=== PATIENT | male | born 1955 | race Caucasian/White ===

== ENCOUNTER 2019-04-11 11:21 | Emergency (ER) | payer MEDICAID, SELFPAY ==
[2019-04-11 11:27] VITALS: BP 154/84; PULSE 69; RESP 15; TEMP 36.8; O2SAT 98
[2019-04-11 11:43] LABS: Bilirubin Negative (Negative); Blood Negative (Negative); Clarity Clear (Clear); Glucose Negative (Negative); Ketones Negative (Negative); Leukocyte Esterase Negative (Negative); Nitrite Negative (Negative); Specific Gravity 1.015 (1.005-1.025); Urobilinogen 0.2 EU/dL (Up TO 0.2)
[2019-04-11] MEDS: Lactated Ringers 1,000 ML 1000 ML IV (12:20)
--- NOTE | 2019-04-11 12:24 | W.ED.GENAD ---
Discharge Plan Disposition Patient Disposition: HOME Condition: Stable Discharge Details Chief Complaint: Abd Prob Clinical Impression: Abdominal pain Primary Care Provider: Eran Diaz ED Provider: Monroe Roach Home Meds and New Rx's Prescriptions: No Action ibuprofen 200 MG tablet 400 mg PO .BID PRN RF: 0 Discharge Instructions Instructions: Abdominal Pain (ED) Additional Instructions: 1. Drink plenty of fluids. 2. Continue all medications as prescribed. 3. Acetaminophen 1000mg every 4 hours (up to 5 time a day) and/or ibuprofen 600mg every 6 hours as needed for fever or pain. Return to the Emergency Department (ED) if your condition worsens, does not improve as expected, or for ANY other concerns. Specifically, return if you have new or uncontrolled pain, worsening fever, difficulty breathing, vomiting, or are unable to drink fluids. Medical Decision Making 61-year-old gentleman presents with persistent atypical abdominal pain localized to his left abdomen. Symptoms subjectively associate with bloating and also with foul-smelling urine. Nontoxic in appearance with minimal left-sided abdominal tenderness. Bedside renal ultrasound negative for evidence of kidney stone/nephrolithiasis. Labs essentially normal. CT scan of the abdomen pelvis ordered with IV contrast and nondiagnostic. Discussed nondiagnostic work with patient. Discharged home with a plan for OTC analgesia, aggressive oral hydration, and outpatient follow-up as needed. Given usual customary return instructions prior to discharge. Imaging Data Radiologic Study: Attestation: I personally reviewed and interpreted this imaging study as follows: Imaging: Ultrasound (Bedside renal study) My impression: Limited renal bedside Ultrasound. Findings include no obvious hydronephrosis bilaterally, no UVJ stone,. Images obtained, reviewed, and interpreted independently by myself. Images saved on ultrasound system for review. Radiologic Study #2: Attestation: I personally reviewed and interpreted this imaging study as follows: Imaging: CT Scan (Abdomen and pelvis with IV contrast) My impression: No acute pathology. Interpreted independently and contemporaneously by myself. Radiologist's impression: Same Lab Data Lab results reviewed: Yes I reviewed the patient's lab results. Lab results narrative: Lab Results 04/11/19 04/11/19 04/11/19 Range/Units 11:25 12:10 12:10 WBC 8.27 (4.4-10.8) k/cumm RBC 4.93 (4.50-6.00) m/cumm Hgb 15.4 (13.5-17.5) g/dL Hct 45.4 (40.0-50.0) % MCV 92.1 (80-95) fL MCH 31.2 (27.0-33.0) pg MCHC 33.9 (32.0-36.0) g/dL RDW 13.3 (11.8-14.1) % Plt Count 348 (130-400) x1000/uL MPV 9.8 (8.0-11.0) fL Immature Gran % 0.1 Neutrophils % 57.5 Lymphocytes % 30.8 Monocytes % 8.5 Eosinophils % 2.4 Basophils % 0.7 Absolute Neutrophils 4.75 (1.2-6.7) k/cumm Absolute Lymphocytes 2.55 (1.2-3.4) k/cumm Absolute Monocytes 0.70 (0.11-0.7) k/cumm Absolute Eosinophils 0.20 (0.0-0.7) k/cumm Absolute Basophils 0.06 (0.0-0.2) k/cumm Sodium 141 (136-145) mmol/L Potassium 4.4 (3.5-5.1) mmol/L Chloride 103 (98-107) mmol/L Carbon Dioxide 29.7 (21.0-32.0) mmol/L Anion Gap 8.3 (3-11) mmol/L BUN 14 (7-18) mg/dL Creatinine 1.03 (0.70-1.30) mg/dL Estimated GFR/1.73 m2 >= 60.00 (mL/min/1.73m2) Glucose 104 (74-106) mg/dL Calcium 9.3 (8.5-10.1) mg/dL Total Bilirubin 0.6 (0.2-1.0) mg/dL AST 17 (15-37) U/L ALT 21 (16-63) U/L Alkaline Phosphatase 63 (46-116) U/L Total Protein 7.7 (6.4-8.2) g/dL Albumin 4.1 (3.4-5.0) g/dL Urine Color Yellow (Yellow) Urine Clarity Clear (Clear) Urine pH 7.0 (5-8) Ur Specific [place] 1.015 (1.005-1.025) Urine Protein Negative (Negative) mg/dL Urine Ketones Negative (Negative) mg/dL Urine Blood Negative (Negative) Urine Nitrite Negative (Negative) Urine Bilirubin Negative (Negative) Urine Urobilinogen 0.2 (Up TO 0.2) EU/dL Ur Leukocyte Esterase Negative (Negative) Urine Glucose Negative (Negative) mg/dL HPI 63-year-old gentleman with a past medical history which includes regular screening by colonoscopy for family history of colon cancer. According to Mr. Gonsalez, his colonoscopies have been negative for any significant bowel pathology. He presents with 1 week of worsening abdominal pain localized to his left abdomen. Associated symptoms include abdominal bloating and some mild foul-smelling urine. Over the past 2 days he has had subjective fevers/chills. He denies dyspnea, chest pain, palpitations, urinary symptoms, or change in bowel habits. He has had no melena or hematochezia. He denies any history of previous similar abdominal symptoms. He notes feeling subjectively bloated and describes the sensation of a blockage in his bowels with symptomatic change associated with belching and flatulence. General Date/Time Provider Initiated Documentation: 04/11/19 11:37. Related Data Home Medications Medication Instructions Recorded Confirmed ibuprofen 400 mg PO .BID PRN 08/19/13 04/11/19 Allergies Allergy/AdvReac Type Severity Reaction Status Date / Time No Known Allergies Allergy Unverified 04/11/19 11:32 General Stated Complaint: Abd Prob SABRINA: 3 Review of Systems All systems reviewed & are unremarkable except as noted in HPI and below PFSH Social History Smoking/Tobacco Use Status: Current every day Tobacco Type: cigarettes Drug use: Never Do you feel safe at home: Yes Do you feel safe in your relationship?: Yes Exam Narrative Exam Narrative: Nursing note and vital signs have been reviewed and noted. GENERAL: alert, active, no acute distress, well -hydrated, well-nourished HEENT: atraumatic/normocephalic, PERRLA, EOMI, conjunctiva clear, external ears/canals normal, nasal mucosa normal NECK: supple, full range of motion, no mass, normal lymphadenopathy, no thyromegaly CARDIOVASCULAR: RRR, no murmurs, nl pulses, no edema PULMONARY: nl effort, no audible wheezing or stridor, nl breath sounds with no focal deficit. no chest wall tenderness ABDOMEN: soft, non-distended, no mass, no organomegaly; mild left lower quadrant tenderness with no rebound, guarding, or peritonitis. EXTREMITY: normal muscle tone, all joints with FROM, no deformity or tenderness SKIN: no exanthem appreciated NEURO: gross motor exam normal, normal stance and gait PSYCH: alert and oriented, Course Vital Signs Vital signs: Vital Signs Temperature 98.2 F 04/11/19 11:27 Pulse 69 04/11/19 11:27 Respiratory Rate 15 04/11/19 11:27 Blood Pressure 154/84 H 04/11/19 11:27 Pulse Oximetry 98 04/11/19 11:27 Temperature 98.2 F 04/11/19 11:27 Temperature Source Temporal Artery Scan 04/11/19 11:27 Pulse 69 04/11/19 11:27 Respiratory Rate 15 04/11/19 11:27 Respiratory Effort Non-Labored 04/11/19 11:30 Blood Pressure 154/84 H 04/11/19 11:27 Blood Pressure Position Sitting 04/11/19 11:27 Pulse Oximetry 98 04/11/19 11:27 Oxygen Delivery Method Room Air 04/11/19 11:27 Oxygen Flow Rate 0 04/11/19 11:27 Pain Level 3 04/11/19 11:27 Lab/Test Results Lab/Test Results: Laboratory Tests Range/Units 04/11/19 11:25 Urine Color (Yellow) Yellow Urine Clarity (Clear) Clear Urine pH (5-8) 7.0 Ur Specific [place] (1.005-1.025) 1.015 Urine Protein (Negative) mg/dL Negative Urine Ketones (Negative) mg/dL Negative Urine Blood (Negative) Negative Urine Nitrite (Negative) Negative Urine Bilirubin (Negative) Negative Urine Urobilinogen (Up TO 0.2) EU/dL 0.2 Ur Leukocyte Esterase (Negative) Negative Urine Glucose (Negative) mg/dL Negative
[2019-04-11 12:27] LABS: Abs Immature Grans 0.01 k/cumm (0.0-0.09); Absolute Basophil Count 0.06 k/cumm (0.0-0.2); Absolute Lymphocyte Count 2.55 k/cumm (1.2-3.4); Absolute Neutrophil Count 4.75 k/cumm (1.2-6.7); Basophils % 0.7; Eosinophils % 2.4; HCT 45.4 % (40.0-50.0); HGB 15.4 g/dL (13.5-17.5); Immature Grans % 0.1; Lymphocytes % 30.8; Mean Corp. HGB Concentration 33.9 g/dL (32.0-36.0); Mean Corpuscular Hemoglobin 31.2 pg (27.0-33.0); Mean Corpuscular Volume 92.1 fL (80-95); Mean Platelet Volume 9.8 fL (8.0-11.0); Monocytes % 8.5; Neutrophils % 57.5; Platelet Count 348 x1000/uL (130-400); RBC 4.93 m/cumm (4.50-6.00); RBC Distribution Width 13.3 % (11.8-14.1); White Blood Cell Count 8.27 k/cumm (4.4-10.8)
[2019-04-11 12:36] LABS: ALT 21 U/L (16-63); AST 17 U/L (15-37); Albumin 4.1 g/dL (3.4-5.0); Alkaline Phosphatase 63 U/L (46-116); Anion Gap 8.3 mmol/L (3-11); BUN 14 mg/dL (7-18); Bilirubin, Total 0.6 mg/dL (0.2-1.0); CO2 29.7 mmol/L (21.0-32.0); CREATININE 1.03 mg/dL (0.70-1.30); Calcium 9.3 mg/dL (8.5-10.1); Chloride 103 mmol/L (98-107); Glucose 104 mg/dL (74-106); Potassium 4.4 mmol/L (3.5-5.1); Sodium 141 mmol/L (136-145); Total Protein 7.7 g/dL (6.4-8.2)
--- NOTE | 2019-04-11 12:37 | DI.CT_ITS ---
EXAM: CT ABDOMEN AND PELVIS W CLINICAL HISTORY: LLQ pain x 1 week, bloating TECHNIQUE: After IV and without oral contrast. COMPARISON: No exams were available for comparison FINDINGS: The lung bases are clear. There is mild left ventricular enlargement. The liver, gallbladder, splee n, pancreas, adrenals and kidneys are unremarkable. The appendix appears normal. There is a normal quantity of stool. No bowel dilatation or inflammatory changes are seen. The aorta shows mild calci fication but is normal in diameter. The bladder is nearly empty. The prostate is unremarkable. The re are mild degenerative disc changes at L5-S1. IMPRESSION: No acute abnormality.
[2019-04-11] MEDS: Omnipaque 350 MG/ML 100 ML BTL IV (12:46)
[2019-04-11 13:42] VITALS: BP 127/83; PULSE 60; RESP 15; TEMP 36.7; O2SAT 98
[2019-04-11 13:49] VITALS: BP 127/83; PULSE 60; RESP 15; TEMP 36.7; O2SAT 98
== END 2019-04-11 13:53 | disposition home or self-care (01) ==
PROVIDERS: Emergency Provider Emergency Medicine; PCP Internal Medicine
DX: R10.32 Left lower quadrant pain (principal); R82.998 Other abnormal findings in urine
CPT/HCPCS: 80053; 96360; 99284; 74177; 81003; 85025; J3490

== ENCOUNTER 2019-04-19 14:52 | Outpatient (REF) | payer MEDICAID, SELFPAY ==
[2019-04-19 22:17] LABS: Calculated LDL 163 mg/dL; Cholesterol 289 mg/dL (<200); HDL Cholesterol 63 mg/dL (40-60); Triglyceride 318 mg/dL (<150)
== END 2019-04-19 15:12 ==
LOC: NCHCN 14:52
PROVIDERS: PCP Internal Medicine; Visit Provider Specialist/Technologist Athletic Trainer
DX: Z00.00 Encounter for general adult medical examination without abnormal findings (principal); Z13.220 Encounter for screening for lipoid disorders
CPT/HCPCS: 80061

== ENCOUNTER 2020-08-16 10:50 | Emergency (ER) | payer MEDICAID, SELFPAY ==
[2020-08-16] VITALS (35 sets, daily range): BP systolic 137–173; BP diastolic 81–108; PULSE 42–69; RESP 8–28; TEMP 36.6; O2SAT 96–99
--- NOTE | 2020-08-16 10:45 | RT.EKG_ITS ---
APPROVED REPORT Exam: Resting ECG Patient Location: E HR:57 bpm ECG Measurements Heart Rate 57 AXIS TN 160 P 55 QRSd 117 QRS -47 QT 432 T 61 QTc 422 Conclusion Sinus bradycardia...rate< 60 LAD,no stemi
--- NOTE | 2020-08-16 11:07 | W.ED.GENAD ---
Discharge Plan Disposition Patient Disposition: HOME Condition: Improving Discharge Details Clinical Impression: Chest pain Primary Care Provider: Toan Ramos ED Provider: Nic Coffey Home Meds and New Rx's Prescriptions: No Action ibuprofen 200 MG tablet 400 mg PO .BID PRN RF: 0 Discharge Instructions Instructions: Chest Pain (ED) Additional Instructions: Your work-up today included blood work, chest x-ray, CAT scan of the chest. May resume normal routine and activities You will receive a call from the scheduling office to arrange a time for your outpatient stress test. Today, you underwent pretesting Covid swab. Return for recurrent chest pain or any other acute concerns Medical Decision Making 65-year-old male smoker with a positive family history of coronary artery disease presents with substernal chest pressure he states awoke approximately 4 AM. Is been constant, graded 4-5 out of 10, and improved with laying flat on the gurney after triage. He is slightly hypertensive otherwise unremarkable vital signs. His exam is reassuring. Differential diagnosis includes gastric bubble, nutcracker esophagus, ACS, PE. Patient had IV access established, screening EKG obtained, patient referred for chest straightening and laboratory testing. Laboratories reveal a D-dimer that is 557, negative when adjusted for age. Unremarkable chemistries, normal troponin, normal lipase. Chest x-ray with a vertically oriented increased density in the left lower lobe. This is in the approximate location of the patient's pain. Therefore, we will pursue advanced imaging with CT scan. CT reveals scarring of the left lower lobe, no other acute findings. Patient observed on manager monitoring and repeat troponin obtained. If negative, anticipate discharge to home with follow-up outpatient stress test. Patient understands plan of outpatient care and indications to seek reevaluation in the ER. HPI General Mode of arrival: ambulatory. Date/Time Provider Initiated Documentation: 08/16/20 10:51. Limitations to Documentation: no limitations. Information obtained by: patient. History of Present Illness 65 year old M presents to the emergency department with the chief complaint of Central chest pressure beginning this morning approximately 4 AM, described as moderate, Quality is described as dull, and is localized to the chest. Patient reports no radiation. Patient started experiencing this hour(s) and it has been constant. No relieving factors improve symptom(s), and other things that improve symptom(s), (Seem to improve lying flat on) No exacerbating factors reported . Patient notes denies cough, fever/chills, shortness of breath and syncope. Patient did receive the following treatments prior to arrival, none Related Data Home Medications Medication Instructions Recorded Confirmed ibuprofen 400 mg PO .BID PRN 08/19/13 08/16/20 Allergies Allergy/AdvReac Type Severity Reaction Status Date / Time No Known Allergies Allergy Unverified 08/16/20 10:57 General Stated Complaint: Chest Pain SABRINA: 2 Review of Systems Narrative: No known sick contacts, no recent illness. Has postnasal drip and seasonal allergies. 6 systems reviewed and otherwise negative [facility]LY [facility] Social History Smoking/Tobacco Use Status: Current every day Tobacco Type: cigarettes Smoking risk assessment performed?: Yes Drug use: Never Do you feel safe at home: Yes Do you feel safe in your relationship?: Yes Exam Narrative Exam Narrative: GEN: awake, alert, oriented 3. Pleasant, well groomed, interactive. HEAD: Normocephalic, atraumatic ENT: Mucous membranes moist, oropharynx unremarkable, External ear exam unremarkable EYES: PERRL, EOMI NECK: Full ROM, no KEELEY, no menigismus CHEST/RESP: Nontender, clear to auscultation bilateral, no wheeze/rhonchi/rales CARDIOVASCULAR: RRR, no murmur, rub abundio. 2+ Rad pulse bilateral ABDOMEN: Soft, minimal epigastric tenderness, no mass. +Bowel sounds EXT: Full ROM, no edema, no rash Neuro: Grossly normal neurologic exam, conversant, interactive. Psych: Speech fluent, thoughts congruent, affect normal Course Vital Signs Vital signs: Vital Signs Temperature 36.6 C 08/16/20 10:52 Pulse 60 08/16/20 10:52 Respiratory Rate 13 08/16/20 10:52 Blood Pressure 173/92 H 08/16/20 10:52 Pulse Oximetry 98 08/16/20 10:52 Temperature 36.6 C 08/16/20 10:52 Temperature Source Skin 08/16/20 10:52 Pulse 60 08/16/20 10:52 Respiratory Rate 18 08/16/20 11:00 Respiratory Effort Non-Labored 08/16/20 11:00 Respiratory Depth Normal 08/16/20 11:00 Respiratory Pattern Normal 08/16/20 11:00 Blood Pressure 173/92 H 08/16/20 10:52 Blood Pressure Position Sitting 08/16/20 10:52 Pulse Oximetry 98 08/16/20 10:52 Oxygen Delivery Method Room Air 08/16/20 10:52 Oxygen Flow Rate 0 08/16/20 10:52 Pain Level 5 08/16/20 11:00
[2020-08-16 11:44] LABS: Abs Immature Grans 0.03 10^3/uL (0.0-0.06); Absolute Basophil Count 0.07 10^3/uL (0.0-0.2); Absolute Eosinophil Count 0.17 10^3/uL (0.0-0.7); Absolute Lymphocyte Count 2.05 10^3/uL (1.2-3.4); Absolute Monocyte Count 0.56 10^3/uL (0.1-0.8); Absolute Neutrophil Count 4.57 10^3/uL (1.2-6.7); Basophils % 0.9; Eosinophils % 2.3; HCT 44.5 % (40.0-50.0); HGB 15.2 g/dL (13.5-17.5); Immature Grans % 0.4; Lymphocytes % 27.5; MCH 31.8 pg (27.0-33.0); MCHC 34.2 % (32.0-36.0); MCV 93.1 fL (80-95); MPV 9.4 fL (8.0-11.0); Monocytes % 7.5; Neutrophils % 61.4; Nucleated RBC 0 %; Platelet Count 313 10^3/uL (130-400); RBC 4.78 10^6/uL (4.36-5.78); RDW 13.1 % (11.8-14.1); WBC 7.45 10^3/uL (4.4-10.8)
--- NOTE | 2020-08-16 11:55 | DI.RAD_ITS ---
EXAM: XR CHEST 2V PA LATERAL CLINICAL HISTORY: chest pressure. TECHNIQUE: 2D digital imaging was performed. COMPARISON: CR CHEST 2 VIEWS PA,LAT from 11/12/2014 FINDINGS: Heart size is normal. The mediastinum is not widened. Right lung is clear. There is some scarring or bronchiectasis in left lower lobe posterior basal seg ment. This finding was not evident on the 2015 study. There are no pleural effusions. IMPRESSION: Increased density vertically orientated in left lower lobe posterior basal segment behind the heart s hadow. Either bronchiectasis or possibly related to aspirated material. DATA REPOSITORY: RADIATION DOSE DELIVERED:
[2020-08-16 12:00] LABS: ALT 25 U/L (16-63); AST 19 U/L (15-37); Alkaline Phosphatase 60 U/L (46-116); Anion Gap 10.5 mmol/L (3-11); BUN 16 mg/dL (7-18); Bilirubin, Total 0.5 mg/dL (0.2-1.0); CO2 26.5 mmol/L (21.0-32.0); Calcium 9.4 mg/dL (8.5-10.1); Chloride 105 mmol/L (98-107); Glucose 104 mg/dL (74-106); Lipase 169 U/L (73-393); Sodium 142 mmol/L (136-145); Total Protein 7.5 g/dL (6.4-8.2)
[2020-08-16 12:01] LABS: Troponin I < 0.05 ng/mL (<0.06)
[2020-08-16 12:13] LABS: D-Dimer 557 ng/mlFEU (<500)
[2020-08-16] MEDS: Normal Saline 250 ML IV (13:00)
[2020-08-16] MEDS: Normal Saline Flush 10 ML SYR IVP (13:34)
[2020-08-16] MEDS: Normal Saline - Diluent 50 ML VIAL IV (13:34)
--- NOTE | 2020-08-16 13:34 | DI.CT_ITS ---
EXAM: CT CHEST PE CTA CLINICAL HISTORY: SSCpressure, L basilar density. TECHNIQUE: Imaging Protocol: CT angiography of the chest was performed using pulmonary embolus vlad col. Multi planar reconstructions were performed. CONTRAST MATERIAL: Intravenous: Omnipaque 350 Contrast volume: 100 cc COMPARISON: CT CT ABDOMEN PELVIS W from 04/11/2019 FINDINGS: CHEST: PULMONARY ARTERIES: There are no intraluminal filling defects to suggest acute pulmonary emboli. LUNGS: There is no evidence of bronchiectasis in the left lower lobe to correspond to finding describ ed on today's chest radiograph behind the left heart shadow. Instead there is some scarring in this region noted. No ominous nodules. No pleural effusions. No significant focal findings in the trach ea and mainstem bronchi. MEDIASTINUM: There is no hilar nor mediastinal adenopathy. Visualized thyroid unremarkable. CARDIAC: Heart size is upper normal. There is no pericardial effusion.Caliber of the thoracic aorta is within normal limits. There is no significant shift of the interventricular septum. PARTIALLY VISUALIZED UPPERMOST ABDOMEN: No obvious findings OSSEOUS: No significant osseous lesions.. IMPRESSION: 1. No evidence of acute pulmonary emboli. No evidence of pulmonary infarction.No pleural effusions. 2. There is some scarring in the left lung base which corresponds to the finding seen on chest radiog raph. There is no bronchiectasis and no confluent infiltrate at this level. 3. No intrathoracic adenopathy. RADIATION DOSE DELIVERED: 373.06mGy.cm Total DLP DATA REPOSITORY: All CT scans at this facility are submitted to the National Radiology Data Registry (NRDR) Dose Index Registry (DIR) with the [employer] (ACR). RADIATION OPTIMIZATION: All CT scans at this facility use at least one of these dose optimization te chniques: automated exposure control; mA and/or kV adjustment per patient size (includes targeted exa ms where dose is matched to clinical indication); or iterative reconstruction.
--- NOTE | 2020-08-16 14:30 | RT.EKG_ITS ---
APPROVED REPORT Exam: Resting ECG Patient Location: E HR:42 bpm ECG Measurements Heart Rate 42 AXIS CO 205 P 56 QRSd 115 QRS -37 QT 469 T 62 QTc 393 Conclusion Sinus bradycardia...rate< 60 Nonspecific IVCD with LAD.
--- NOTE | 2020-08-16 14:45 | NUR.NOTE ---
Nursing Note: Stree test request faxed [facility]
[2020-08-16 14:52] LABS: Source Nasal/Nares
[2020-08-16 15:13] LABS: Troponin I < 0.05 ng/mL (<0.06)
[2020-08-16 17:12] LABS: COVID-19 PCR Negative (Negative)
--- NOTE | 2020-08-16 17:38 | NUR.NOTE ---
08/16/20 @ 9523 left message to return call for test results.
--- NOTE | 2020-08-16 17:48 | NUR.NOTE ---
patient returned phone call and after verifying patient's identity, relayed negative covid test results to them.
--- NOTE | 2020-08-17 08:55 | NUR.NOTE ---
Nursing Note: Attempted to contact pt via phone to notify of negative covid results, received answering machine. Results mailed to patient address on file.
== END 2020-08-16 16:10 | disposition home or self-care (01) ==
PROVIDERS: Emergency Provider Emergency Medicine; PCP Internal Medicine
DX: R07.89 Other chest pain (principal); Z20.822 Contact with and (suspected) exposure to COVID-19; J98.4 Other disorders of lung
CPT/HCPCS: 36415; 71275; 80053; 83690; 87635; 93005; 96360; 99285; 71046; 83735; 84484; 85025; 85379; 93010; 99284

== ENCOUNTER 2022-01-29 09:23 | Outpatient (REF) | payer MEDICARE, MEDICAID, SELFPAY ==
[2022-01-29 16:54] LABS: HCT 46.1 % (40.0-50.0); HGB 15.3 g/dL (13.5-17.5); MCH 31.4 pg (27.0-33.0); MCHC 33.2 % (32.0-36.0); MCV 95 fL (80-95); MPV 11.6 fL (8.0-11.0); Platelet Count 304 10^3/uL (130-400); RBC 4.87 10^6/uL (4.36-5.78); RDW 13.1 % (11.8-14.1); RDW-SD 45.4 fL
[2022-01-29 17:19] LABS: ALT 23 U/L (16-63); AST 20 U/L (15-37); Albumin 4.1 g/dL (3.4-5.0); Alkaline Phosphatase 68 U/L (46-116); Anion Gap 7.5 mmol/L (3-11); BUN 21 mg/dL (7-18); Bilirubin, Total 0.7 mg/dL (0.2-1.0); CO2 29.5 mmol/L (21.0-32.0); Calcium 9.5 mg/dL (8.5-10.1); Calculated LDL 201 mg/dL (<100); Chloride 104 mmol/L (98-107); Cholesterol 290 mg/dL (<200); Estimated GFR 83.52 (mL/min/1.73m2); Glucose 99 mg/dL (74-106); HDL Cholesterol 67 mg/dL (40-60); Potassium 4.6 mmol/L (3.5-5.1); Sodium 141 mmol/L (136-145); Total Protein 7.5 g/dL (6.4-8.2); Triglyceride 112 mg/dL (<150)
[2022-01-29 23:20] LABS: PSA, Screening 0.8 ng/mL (<=4.5)
[2022-01-30 08:59] LABS: Lyme Ab w Rflx to Lyme Confirm Negative (Negative)
[2022-02-01 22:26] LABS: Anaplasma phagocytophilum Negative (Negative); B. miyamotoi PCR Negative (Negative); Babesia divergens/MO-1 Negative (Negative); Babesia duncani Negative (Negative); Babesia microti Negative (Negative); Ehrlichia chaffeensis Negative (Negative); Ehrlichia ewingii/canis Negative (Negative); Ehrlichia muris eauclairensis Negative (Negative)
== END 2022-01-29 09:24 | disposition home or self-care (01) ==
LOC: NCHCN 09:23
PROVIDERS: PCP Internal Medicine; Visit Provider Nurse Practitioner Family
DX: M25.59 Pain in other specified joint (principal); R79.89 Other specified abnormal findings of blood chemistry; Z12.5 Encounter for screening for malignant neoplasm of prostate; Z00.00 Encounter for general adult medical examination without abnormal findings
CPT/HCPCS: 80053; 80061; 84153; 85027; 87798; 86618

== ENCOUNTER 2022-07-17 10:38 | Emergency (ER) | payer MEDICARE, MEDICAID, SELFPAY ==
[2022-07-17 10:51] VITALS: BP 173/97; PULSE 62; RESP 15; TEMP 36.7; O2SAT 96
--- NOTE | 2022-07-17 11:13 | ED.GENADUL_ITS ---
Discharge Plan Disposition Patient Disposition: Home Discharge Details Clinical Impression: Abdominal pain Primary Care Provider: Sonal Espinoza ED Provider: Nic Coffey Home Meds and New Rx's Prescriptions: New amoxicillin-pot clavulanate 875-125 mg tablet 1 tab PO BID 10 Days Qty: 20 0RF Continued ibuprofen 200 MG tablet 400 mg PO .BID PRN Discharge Instructions Instructions: Abdominal Pain (ED) Additional Instructions: As we discussed, we will use a twup-clx-hye approach to the start of antibiotics. If you have recurrent discomfort this evening please begin 10-day course of Augmentin as prescribed. If you take this medication, please take a daily ilxf-nhr-jhhblyu probiotic for good gut health. May use Tylenol as needed for discomfort. Return to the emergency department for any acute concerns including the development of fever, vomiting, worsening abdominal pain. Medical Decision Making This is a pleasant and healthy 67-year-old male presents with days of left lower quadrant abdominal pain. He has not had a fever or vomiting. Notes some mild decrease in appetite. No change to stool and no change to urine. Patient is afebrile and well-appearing he does demonstrate left lower quadrant abdominal tenderness on exam. Differential diagnosis would include diverticulitis, atypical presentation of appendicitis, colitis. Patient IV access established, given fluids and acetaminophen, referred for imaging studies. The patient's laboratories are reassuring. His CT images showed no evidence of acute process. There is evidence of diverticulosis. Discussed with him that my clinical suspicion for mild diverticulitis is present but low. We discussed that given his pain is improving, we will use a itax-zoy-uba approach to starting antibiotics if his pain recurs this evening he will start a course of Augmentin. If his pain continues to be absent he will resume normal daily routine and activities. He understands indications to seek reevaluation in the ER. HPI General Mode of arrival: ambulatory . Date/Time Provider Initiated Documentation: 07/17/22 10:39 . Limitations to Documentation: no limitations . Information obtained by: patient . History of Present Illness 67 year old M presents to the emergency department with the chief complaint of Lower abdominal pain, described as moderate, Quality is described as dull and constant, and is localized to the abdomen and left. Patient reports no radiation. Ana ent started experiencing this day(s) and it has been constant. No relieving factors improve symptom(s), No exacerbating factors reported . Patient did receive the following treatments prior to arrival, none Related Data Home Medications Medication Instructions Recorded Confirmed ibuprofen 200 mg tablet 400 mg PO .BID PRN 08/19/13 07/17/22 amoxicillin 875 mg-potassium 1 tab PO BID 10 days #20 tabs 07/17/22 clavulanate 125 mg tablet Previous Rx's Medication Instructions Recorded amoxicillin 875 mg-potassium 1 tab PO BID 10 days #20 tabs 07/17/22 clavulanate 125 mg tablet Allergies Allergy/AdvReac Type Severity Reaction Status Date / Time No Known Allergies Allergy Unverified 07/17/22 11:15 General Stated Complaint: Abd Prob SABRINA: 3 Review of Systems Narrative: See HPI. 7 systems reviewed PFSH All Active Problems (Updated 07/17/22 @ 13:52 by Nic Coffey MD) Chest pain (Acute) Abdominal pain (Acute) Social History Smoking/Tobacco Use Status: Current every day Tobacco Type: cigarettes Smoking risk assessment performed?: Yes Alcohol Intake: current Alcohol Intake frequency: a few times a week Alcohol type: wine Drug use: Never Substance use type: does not use Do you feel safe at home: Yes Do you feel safe in your relationship?: Yes Exam Narrative Exam Narrative: GEN: awake, alert, oriented 3. Pleasant, well groomed, interactive. HEAD: Normocephalic, atraumatic ENT: Mucous membranes moist, oropharynx unremarkable, External ear exam unremarkable EYES: PERRL, EOMI NECK: Full ROM, no KEELEY, no menigismus CHEST/RESP: Nontender, clear to auscultation bilateral, no wheeze/rhonchi/rales CARDIOVASCULAR: RRR, no murmur, rub abundio. 2+ Rad pulse bilateral ABDOMEN: Soft, tender left lower quadrant to palpation, no mass. +Bowel sounds EXT: Full ROM, no edema, no rash Neuro: Grossly normal neurologic exam, conversant, interactive. Psych: Speech fluent, thoughts congruent, affect normal Course Vital Signs Vital signs: Vital Signs Temperature 36.7 C 07/17/22 10:51 Pulse 62 07/17/22 10:51 Respiratory Rate 15 07/17/22 10:51 Blood Pressure 173/97 H 07/17/22 10:51 Pulse Oximetry 96 07/17/22 10:51 Temperature 36.7 C 07/17/22 10:51 Temperature Source Oral 07/17/22 10:51 Pulse 62 07/17/22 10:51 Respiratory Rate 15 07/17/22 10:51 Blood Pressure 173/97 H 07/17/22 10:51 Blood Pressure Position Sitting 07/17/22 10:51 Pulse Oximetry 96 07/17/22 10:51 Oxygen Delivery Method Room Air 07/17/22 10:51 Oxygen Flow Rate 0 07/17/22 10:51 Pain Level 7 07/17/22 10:51
--- NOTE | 2022-07-17 11:15 | DI.CT_ITS ---
Exam(s) CT ABDOMEN PELVIS W EXAM: CT ABDOMEN PELVIS W CLINICAL HISTORY: LLQ abd pain. TECHNIQUE: Imaging Protocol: Axial computed tomography images with coronal and sagittal reformatted images were created and reviewed CONTRAST MATERIAL: Intravenous: Omnipaque 350 Contrast volume:100 ml Oral: / no COMPARISON: CT CT ABDOMEN PELVIS W from 04/11/[address] CHEST PE CTA from 08/16/2020 FINDINGS: ABDOMEN: Lung Bases: Normal where visualized. Liver: Normal density. No measurable mass. Gallbladder and biliary tract: No radiodense calculus or dilation. Pancreas: Normal density, no abnormal calcifications or inflammatory process. Spleen: Normal. Kidneys: Normal size, contour and axis. No radiodense stones or obstructive uropathy. No suspicious m asses seen. Adrenal glands: No masses seen. Abdominal Aorta: Abdominal portion non-dilated. Moderate atherosclerotic changes. Soft tissues: Unremarkable. PELVIS: Bladder: Nearly empty. No calculi.No focal mass. Bowel: Mild sigmoid diverticulosis. No evidence of diverticulitis. Normal quantity of stool. No ob struction. No bowel wall thickening. Appendix normal. Peritoneal cavity: No ascites, collection or mesenteric inflammatory response. Bones: Degenerative changes L5-S1. Reproductive organs: Mild prostate enlargement. Lymph nodes: Unremarkable. Impression: Unremarkable CT scan of the abdomen and pelvis. RADIATION DOSE DELIVERED: 744.66mGy.cm Total DLP DATA REPOSITORY: All CT scans at this facility are submitted to the National Radiology Data Registry (NRDR) Dose Index Registry (DIR) with the [employer] (ACR). RADIATION OPTIMIZATION: All CT scans at this facility use at least one of these dose optimization te chniques: automated exposure control; mA and/or kV adjustment per patient size (includes targeted exa ms where dose is matched to clinical indication); or iterative reconstruction.
[2022-07-17] MEDS: ACETAMINOPHEN 1,000 MG/100 ML BTL 400 MG IVPB (11:38)
[2022-07-17 11:39] LABS: Abs Immature Grans 0.01 10^3/uL (0.0-0.06); Absolute Basophil Count 0.09 10^3/uL (0.0-0.2); Absolute Lymphocyte Count 2.38 10^3/uL (1.2-3.4); Absolute Monocyte Count 0.59 10^3/uL (0.1-0.8); Absolute Neutrophil Count 4.78 10^3/uL (1.2-6.7); Basophils % 1.1; Eosinophils % 2.5; HCT 48.3 % (40.0-50.0); HGB 16.2 g/dL (13.5-17.5); Immature Grans % 0.1; Lymphocytes % 29.6; MCH 31.2 pg (27.0-33.0); MCHC 33.5 % (32.0-36.0); MCV 93 fL (80-95); Monocytes % 7.3; Neutrophils % 59.4; Platelet Count 289 10^3/uL (130-400); RDW 13.1 % (11.8-14.1); RDW-SD 44.5 fL; WBC 8.05 10^3/uL (4.4-10.8)
[2022-07-17 11:45] LABS: Bilirubin Negative (Negative); Blood Negative (Negative); Clarity Clear (Clear); Glucose Negative (Negative); Ketones Negative (Negative); Leukocyte Esterase Negative (Negative); Nitrite Negative (Negative); Specific Gravity 1.015 (1.005-1.025); Urobilinogen 0.2 mg/dL (Up to 0.2)
[2022-07-17 11:57] LABS: ALT 18 U/L (16-63); AST 18 U/L (15-37); Albumin 4.1 g/dL (3.4-5.0); Alkaline Phosphatase 63 U/L (46-116); Anion Gap 5.5 mmol/L (3-11); BUN 13 mg/dL (7-18); Bilirubin, Total 0.6 mg/dL (0.2-1.0); CO2 28.5 mmol/L (21.0-32.0); CREATININE 1.1 mg/dL (0.70-1.30); Calcium 9.4 mg/dL (8.5-10.1); Chloride 105 mmol/L (98-107); Estimated GFR 74.04 (mL/min/1.73m2); Glucose 107 mg/dL (74-106); Magnesium 2.1 mg/dL (1.8-2.4); Potassium 3.9 mmol/L (3.5-5.1); Sodium 139 mmol/L (136-145); Total Protein 7.6 g/dL (6.4-8.2)
[2022-07-17] MEDS: Omnipaque 350 MG/ML 100 ML BTL IJ (14:00)
[2022-07-17 14:11] VITALS: BP 143/89; PULSE 60; RESP 18; TEMP 36.9; O2SAT 98
== END 2022-07-17 14:20 | disposition home or self-care (01) ==
PROVIDERS: Emergency Provider Emergency Medicine; PCP Nurse Practitioner Family
DX: R10.32 Left lower quadrant pain (principal)
CPT/HCPCS: 36415; 80053; 96365; 99284; 99285; 74177; 81003; 83735; 85025; J0131; J3490

== ENCOUNTER 2023-01-23 22:03 | Outpatient (REF) | payer MEDICARE, SELFPAY ==
[2023-01-23 22:47] LABS: ALT 23 U/L (16-63); AST 21 U/L (15-37); Albumin 4.3 g/dL (3.4-5.0); Alkaline Phosphatase 68 U/L (46-116); Anion Gap 11.9 mmol/L (3-11); BUN 12 mg/dL (7-18); Bilirubin, Total 0.8 mg/dL (0.2-1.0); CO2 25.1 mmol/L (21.0-32.0); Calcium 9.7 mg/dL (8.5-10.1); Calculated LDL 178 mg/dL (<100); Chloride 103 mmol/L (98-107); Cholesterol 272 mg/dL (<200); Estimated GFR 83.01 (mL/min/1.73m2); Glucose 100 mg/dL (74-106); HDL Cholesterol 68 mg/dL (40-60); Potassium 4.4 mmol/L (3.5-5.1); Sodium 140 mmol/L (136-145); Total Protein 7.5 g/dL (6.4-8.2); Triglyceride 130 mg/dL (<150)
[2023-01-26 09:14] LABS: PSA, Screening 0.8 ng/mL (<=4.5)
== END 2023-01-23 22:04 | disposition home or self-care (01) ==
LOC: NCHCN 22:03
PROVIDERS: PCP Nurse Practitioner Family; Visit Provider Nurse Practitioner Family
DX: E78.5 Hyperlipidemia, unspecified (principal); R03.0 Elevated blood-pressure reading, without diagnosis of hypertension; Z12.5 Encounter for screening for malignant neoplasm of prostate
CPT/HCPCS: 80053; 80061; 84153

== ENCOUNTER 2023-05-13 14:32 | Emergency (ER) | payer MEDICARE, SELFPAY ==
--- NOTE | 2023-05-13 14:30 | RT.EKG_ITS ---
APPROVED REPORT Exam: Resting ECG Reason for Exam: chest pain Patient Location: E HR:66 bpm ECG Measurements Heart Rate 66 AXIS [place] 178 P 79 QRSd 108 QRS -36 QT 444 T 64 QTc 464 Conclusion Sinus rhythm...normal P axis, V-rate 60- 99 Left axis deviation...QRS axis (-30,-90) Physician: no stemi
[2023-05-13 14:38] VITALS: BP 185/93; PULSE 68; RESP 13; TEMP 37.1; O2SAT 96
--- NOTE | 2023-05-13 14:45 | DI.RAD_ITS ---
Exam(s) XR PORTABLE CHEST AP EXAM: XR PORTABLE CHEST AP CLINICAL HISTORY: epigastric pain and chest pain. TECHNIQUE: 2D digital imaging was performed. COMPARISON: CR XR CHEST 2V PA LATERAL from 08/16/2020 FINDINGS: Single AP portable view. Heart size is upper normal. The mediastinum is not widened. Lungs are clear. No infiltrates nor obvious pleural effusions. IMPRESSION: No acute pulmonary findings on this single AP portable view of the chest. DATA REPOSITORY: RADIATION DOSE DELIVERED:
--- NOTE | 2023-05-13 14:52 | ED.GENADUL_ITS ---
HPI General Stated Complaint: Chest Pain SABRINA: 2 Date/Time Provider Initiated Documentation: 05/13/23 14:34. HPI Narrative: 67-year-old male with past medical history of regular tobacco abuse, high cholesterol, erectile dysfunction, presents today for evaluation of chest discomfort. Patient states that for the last 5 days he has been having a discomfort that starts as burping and epigastric pressure, transitions into the chest. It lasts for few hours and then eventually goes away. It is made worse by lying flat or lying down, but is improved by activity or exertion. He denies any recent exertional discomfort. He states that his exercise activity is normal. He denies any arm neck or shoulder pain. He does admit to some slight jaw pain in the right that occurred yesterday, but none currently. He has been eating extra seafood lately but transitioned away from this and still has persistent symptoms. He did take ibuprofen and Tylenol yesterday for some mild dental pain, but has no dental pain at this time. No other complaints at this t noemy. No recent long trips, surgeries or procedures. Family history is positive for cardiac disease in his father and grandfather. No personal history of cardiac disease otherwise. He has not had a stress test. Related Data Home Medications Medication Instructions Recorded Confirmed ibuprofen 200 mg tablet 400 mg PO .BID PRN 08/19/13 07/17/22 sildenafil 50 mg tablet (Viagra) 50 mg PO DAILY PRN 10/28/22 famotidine 40 mg tablet 40 mg PO DAILY #60 tabs 05/13/23 Previous Rx's Medication Instructions Recorded famotidine 40 mg tablet 40 mg PO DAILY #60 tabs 05/13/23 Allergies Allergy/AdvReac Type Severity Reaction Status Date / Time No Known Allergies Allergy Unverified 07/17/22 11:15 Review of Systems All systems reviewed & are unremarkable except as noted in HPI and below PFSH All Active Problems (Updated 05/13/23 @ 16:57 by Deshaun Rogers DO) Tobacco use (Acute) Erectile dysfunction (Acute) Hyperlipidemia (Acute) Chest pain (Acute) Social History Smoking/Tobacco Use Status: Current every day Tobacco Type: cigarettes Smoking risk assessment performed?: Yes Alcohol Intake: current Alcohol Intake frequency: a few times a week Alcohol type: wine Drug use: Never Substance use type: does not use Do you feel safe at home: Yes Do you feel safe in your relationship?: Yes Exam Narrative Exam Narrative: 1.Const: Well-nourished, Well-developed, appearing stated age 2.Eyes: PERRL, no conjunctival injection, and symmetrical lids. 3.ENT: Atraumatic external nose and ears. Moist MM. Neck: Symmetric, trachea m idline, No thyromegaly. 4.CVS: +S1/S2, No murmurs or gallops. Peripheral pulses 2+ and equal in all extremities. Brisk capillary refill in all extremities. 5.RESP: Unlabored respiratory effort. Clear to auscultation bilaterally. No wheezes rales or rhonchi 6.GI: Soft, Nontender/Nondistended, No hepatosplenomegaly. No guarding or rebound. 7.MSK: Normocephalic/Atraumatic, Extremities w/o deformity or ttp No cyanosis or clubbing, Normal movement of all extremities 8.Skin: Warm, Dry. No rashes or lesions. 9.Neuro: regional cra II-XII grossly intact. Sensation grossly intact, no focal neurolo gic deficits. 10.Psych: (AAO) x3. Appropriate mood and affect Course Vital Signs Vital signs: Vital Signs Temperature 37.1 C 05/13/23 14:38 Pulse 68 05/13/23 14:38 Respiratory Rate 13 05/13/23 14:38 Blood Pressure 185/93 H 05/13/23 14:38 Pulse Oximetry 96 05/13/23 14:38 Temperature 37.1 C 05/13/23 14:38 Temperature Source Skin 05/13/23 14:38 Pulse 68 05/13/23 14:38 Respiratory Rate 13 05/13/23 14:38 Blood Pressure 185/93 H 05/13/23 14:38 Pulse Oximetry 96 05/13/23 14:38 Oxygen Delivery Method Room Air 05/13/23 14:38 Oxygen Flow Rate 0 05/13/23 14:38 Pain Level 10 05/13/23 14:38 Medical Decision Making 67-year-old male with past medical history of regular tobacco abuse, high cholesterol, erectile dysfunction, presents today for evaluation of chest discomfort. Patient states that for the last 5 days he has been having a discomfort that starts as burping and epigastric pressure, transitions into the chest. It lasts for few hours and then eventually goes away. It is made worse by lying flat or lying down, but is improved by activity or exertion. He denies any recent exertional discomfort. He states that his exercise activity is normal. He denies any arm neck or shoulder pain. He does admit to some slight jaw pain in the right that occurred yesterday, but none currently. He has been eating extra seafood lately but transitioned away from this and still has persistent symptoms. He did take ibuprofen and Tylenol yesterday for some mild dental pain, but has no dental pain at this time. No other complaints at this time. No recent long trips, surgeries or procedures. Family history is positive for cardiac disease in his father and grandfather. No personal history of cardiac disease otherwise. He has not had a stress test. Exam demonstrates well-appearing male, no distress, vital signs stable. Lung sounds clear. EKG shows no evidence of STEMI. Differential is high for gastric irritation, less likely pancreatitis or gallbladder pathology. He has no abdominal tenderness on exam. Cardiac etiology is low on the differential but with his family history I do feel that he needs. Symptoms appear clinically inconsistent with dissection or PE. Low likelihood for pneumothorax. Will evaluate for these concerning etiologies, monitor closely and Reassess. 4:56 PM Laboratory workup is returned normal, initial and repeat troponin have returned both normal. Electrolytes normal, renal function normal, lipase normal. Patient's pain is gone. He feels well. No gassy sensation. Symptoms appear inconsistent with ACS. That being said I do feel that he would benefit from continued nonemergent follow-up with an outpatient stress test. Additionally I am concerned that there may be a gastric irritation issue that could be causing his symptoms. We will prescribe famotidine for home use. Patient stable for discharge. Discussed red flags for which to return. I have extensively reviewed the treatment plan and discharge instructions with the patient. I have addressed all patient concerns at this time. The patient was made aware of what symptoms to monitor for that would warrant a return to the emergency department. Discussed the plan with the patient, they demonstrate verbal understanding and agreement with our assessment and plan at this time. The documentation in this chart was dictated using [employer] dictation software. Please excuse any dictation errors. FINDINGS: Single AP portable view. Heart size is upper normal. The mediastinum is not widened. Lungs are clear. No infiltrates nor obvious pleural effusions. IMPRESSION: No acute pulmonary findings on this single AP portable view of the chest. Quality:SDOH Health Related Social Needs: No Data to Display Discharge Plan Disposition Patient Disposition: Home Condition: Good Discharge Details Clinical Impression: Chest pain Primary Care Provider: Sonal Espinoza ED Provider: Deshaun Rogers Home Meds and New Rx's Prescriptions: New famotidine 40 mg tablet 40 mg PO DAILY Qty: 60 0RF No Action sildenafil [Viagra] 50 mg tablet 50 mg PO DAILY PRN Rx Instructions: administer 30 minutes to 4 hours before activity ibuprofen 200 MG tablet 400 mg PO .BID PRN Discharge Instructions Instructions: Chest Pain (ED) Additional Instructions: At this time your workup thankfully does not show any evidence of heart attack, ruptured lung, or other significant abnormality. It would be prudent to get an outpatient nonemergent stress test in the next few weeks for continued monitoring and evaluation. Additionally I am concerned that there may be some irritation in your stomach that could be causing some of your symptoms. Please avoid any spicy foods, tomato-based products or citrus products, please take the famotidine as directed. Has been sent to your pharmacy on file. If you notice any worsening of your symptoms, or any new symptoms such as vomiting, diarrhea, fever, chills, shortness of breath, chest pain, numbness, weakness, or fainting , please return immediately to the emergency department for reevaluation. Please follow up with your primary care provider as soon as possible for reassessment and reevaluation. As always, it was a pleasure participating in your medical care today. Referrals: Sonal Espinoza [Primary Care Provider] -
[2023-05-13] MEDS: Sucralfate 1 GM TAB 2 GM PO (14:59)
[2023-05-13 15:00] LABS: Abs Immature Grans 0.03 10^3/uL (0.0-0.06); Absolute Basophil Count 0.11 10^3/uL (0.0-0.2); Absolute Eosinophil Count 0.19 10^3/uL (0.0-0.7); Absolute Lymphocyte Count 2.48 10^3/uL (1.2-3.4); Absolute Monocyte Count 0.83 10^3/uL (0.1-0.8); Absolute Neutrophil Count 8.52 10^3/uL (1.2-6.7); Basophils % 0.9; Eosinophils % 1.6; HCT 46.6 % (40.0-50.0); HGB 16.3 g/dL (13.5-17.5); Immature Grans % 0.2; Lymphocytes % 20.4; MCH 31.7 pg (27.0-33.0); MCV 91 fL (80-95); Monocytes % 6.8; Neutrophils % 70.1; Platelet Count 302 10^3/uL (130-400); RBC 5.15 10^6/uL (4.36-5.78); RDW 12.7 % (11.8-14.1); RDW-SD 42.4 fL; WBC 12.16 10^3/uL (4.4-10.8)
[2023-05-13 15:13] LABS: PTT Activated 35.1 sec (23.6-32.8); Prothrombin Time 10.5 sec (9.1-11.1)
[2023-05-13 15:21] LABS: Lipase 42 U/L (16-77); Troponin I < 50 ng/L (< or =60)
[2023-05-13 15:24] LABS: ALT 22 U/L (16-63); AST 21 U/L (15-37); Albumin 4.3 g/dL (3.4-5.0); Alkaline Phosphatase 61 U/L (46-116); Anion Gap 9.9 mmol/L (3-11); BUN 13 mg/dL (7-18); Bilirubin, Total 0.8 mg/dL (0.2-1.0); CO2 26.1 mmol/L (21.0-32.0); CREATININE 1.1 mg/dL (0.70-1.30); Calcium 9.7 mg/dL (8.5-10.1); Chloride 104 mmol/L (98-107); Estimated GFR 74.04 (mL/min/1.73m2); Glucose 117 mg/dL (74-106); NT-proBNP 102 pg/mL (<300); Potassium 3.6 mmol/L (3.5-5.1); Sodium 140 mmol/L (136-145); Total Protein 7.8 g/dL (6.4-8.2)
[2023-05-13 15:42] VITALS: RESP 16
[2023-05-13 16:53] LABS: Troponin I < 50 ng/L (< or =60)
[2023-05-13 17:08] VITALS: BP 147/95; PULSE 60; RESP 17; TEMP 36.3; O2SAT 97
[2023-05-13] MEDS: Famotidine 20 MG TAB 120 MG PO (17:09)
[2023-05-13] MEDS: Famotidine 20 MG TAB 40 MG PO (17:09)
== END 2023-05-13 17:11 | disposition home or self-care (01) ==
PROVIDERS: Emergency Provider Student in an Organized Health Care Education/Training Program; PCP Nurse Practitioner Family
DX: R07.9 Chest pain, unspecified (principal); E78.5 Hyperlipidemia, unspecified; R10.13 Epigastric pain; F17.210 Nicotine dependence, cigarettes, uncomplicated
CPT/HCPCS: 80053; 83690; 93005; 99284; 71045; 83880; 84484; 85025; 85610; 85730; 93010

== ENCOUNTER 2023-10-11 09:51 | Emergency (ER) | payer MEDICARE, SELFPAY ==
[2023-10-11 09:54] VITALS: BP 166/103; PULSE 63; RESP 12; TEMP 36.7; O2SAT 98
--- NOTE | 2023-10-11 10:15 | DI.CT_ITS ---
Exam(s) CT NECK W EXAM: CT NECK W INDICATION: right facial swelling, difficulty swallowing. COMPARISON: No exams were available for comparison TECHNIQUE: FINDINGS: VISUALIZED PARANASAL SINUSES: No fluid levels. Multifocal mucosal thickening either polyps or small retention cysts are noted in the right maxillary sinus. Other paranasal sinuses are clear. NASOPHARYNX: Unremarkable ORODENTAL: Unremarkable. OROPHARYNX: Unremarkable. No masses evident. No obvious asymmetric tonsillar enlargement. No evide nce of tonsillar abscess. No abnormal retropharyngeal soft tissue swelling. HYPOPHARYNX: Unremarkable. Valleculae and epiglottis and aryepiglottic folds appear normal. VOCAL CORDS: Unremarkable. No masses evident. Subglottic airway appears unremarkable. THYROID GLAND: Unremarkable. Normal size and no obvious nodules. SALIVARY GLANDS: Submandibular glands appear unremarkable. The left parotid gland unremarkable. The re is mild streaking around the right parotid gland, possibly significant. No obvious calculi. No m asses. LYMPH NODES: There is no adenopathy evident in the neck and supraclavicular regions. OTHER: VISUALIZED LUNG APICES: No significant findings. IMPRESSION: RADIATION DOSE DELIVERED: 564.12mGy.cm Total DLP DATA REPOSITORY: All CT scans at this facility are submitted to the National Radiology Data Registry (NRDR) Dose Index Registry (DIR) with the [employer] (A[employer]). RADIATION OPTIMIZATION: All CT scans at this facility use at least one of these dose optimization te chniques: automated exposure control; mA and/or kV adjustment per patient size (includes targeted exa ms where dose is matched to clinical indication); or iterative reconstruction.
[2023-10-11 10:32] LABS: Abs Immature Grans 0.03 10^3/uL (0.0-0.06); Absolute Basophil Count 0.09 10^3/uL (0.0-0.2); Absolute Eosinophil Count 0.32 10^3/uL (0.0-0.7); Absolute Lymphocyte Count 2.54 10^3/uL (1.2-3.4); Absolute Monocyte Count 0.65 10^3/uL (0.1-0.8); Absolute Neutrophil Count 5.32 10^3/uL (1.2-6.7); Eosinophils % 3.6 %; HCT 48.1 % (40.0-50.0); HGB 16.4 g/dL (13.5-17.5); Immature Grans % 0.3 %; Lymphocytes % 28.4 %; MCH 31.7 pg (27.0-33.0); MCHC 34.1 % (32.0-36.0); MCV 93 fL (80-95); MPV 9.6 fL (8.0-11.0); Monocytes % 7.3 %; Neutrophils % 59.4 %; Platelet Count 329 10^3/uL (130-400); RBC 5.18 10^6/uL (4.36-5.78); RDW 13.1 % (11.8-14.1); RDW-SD 44.9 fL; WBC 8.95 10^3/uL (4.4-10.8)
[2023-10-11 10:42] LABS: BUN 15 mg/dL (7-18); Calcium 9.1 mg/dL (8.5-10.1); Chloride 101 mmol/L (98-107); Estimated GFR 82.49 (mL/min/1.73m2); Glucose 114 mg/dL (74-106); Potassium 4.2 mmol/L (3.5-5.1); Sodium 140 mmol/L (136-145)
[2023-10-11] MEDS: Omnipaque 350 MG/ML 100 ML BTL IJ (11:22)
[2023-10-11] MEDS: Normal Saline - Diluent 50 ML VIAL IV (11:25)
--- NOTE | 2023-10-11 11:52 | DI.VRAD_ITS ---
PROCEDURE INFORMATION: Exam: CT Neck With Contrast Exam date and time: 10/11/2023 11:05 AM Age: 68 years old Clinical indication: Other: Right facial swelling, difficulty swallowing TECHNIQUE: Imaging protocol: Computed tomography of the neck with contrast. Radiation optimization: All CT scans at this facility use at least one of these dose optimization techniques: automated exposure control; mA and/or kV adjustment per patient size (includes targeted exams where dose is matched to clinical indication); or iterative reconstruction. Contrast material: OMNIPAQUE 350; Contrast volume: 100 ml; Contrast route: INTRAVENOUS (IV); COMPARISON: CT CHEST PE CTA 08/16/2020 1:23 PM FINDINGS: Salivary glands: Ill-defined edema within the right parotid gland, with stranding in adjacent fat. Punctate radiodensity along the anterior right parotid gland may be ductal stone (series 5, image 478). Nonspecific parotiditis, clinical correlation with patient pain recommended. Submandibular glands unremarkable. Pharynx: Unremarkable. No significant tonsillar enlargement. Prevertebral and retropharyngeal spaces: Unremarkable. Larynx: Unremarkable. Epiglottis is normal. Thyroid: Normal. No enlarged or calcified nodules. Trachea: Visualized trachea is unremarkable. Lungs: Unremarkable as visualized. Lymph nodes: Unremarkable. No lymphadenopathy. Bones/joints: Moderate disc space narrowing at C5-C6. Soft tissues: Unremarkable. No significant soft tissue swelling. IMPRESSION: Ill-defined edema within the right parotid gland, with stranding in adjacent fat. Punctate radiodensity along the anterior right parotid gland may be ductal stone (series 5, image 478). Nonspecific parotiditis, clinical correlation with patient pain recommended. Dictated and Authenticated by: Leandra Franz MD. Ordering:EDGARDO Trent MD
[2023-10-11 12:35] VITALS: BP 154/88; PULSE 65; RESP 14; TEMP 36.7; O2SAT 98
--- NOTE | 2023-10-11 14:02 | ED.GENADUL_ITS ---
Discharge Plan Disposition Patient Disposition: Home Condition: Stable Discharge Details Clinical Impression: Acute parotitis, Calculus of parotid gland Primary Care Provider: Sonal Espinoza ED Provider: Miley Case Home Meds and New Rx's Prescriptions: New dicloxacillin 500 mg capsule 500 mg PO QID 7 Days Qty: 28 0RF Continued sildenafil [Viagra] 50 mg tablet 50 mg PO DAILY PRN Rx Instructions: administer 30 minutes to 4 hours before activity ibuprofen 200 MG tablet 400 mg PO .BID PRN Discharge Instructions Additional Instructions: take antibiotics as prescribed yogurt daily while on antibiotics lemon drops/sialogogues, sour candies, lemon juice motrin/tylenol as needed for pain return earlier with fever, chills purulent drainage, or worsening complaints Referrals: Sonal Espinoza [Primary Care Provider] - Discharge Data Discharge Date/Time-TO BE ENTERED AT DEPARTURE: 10/11/23 12:39 HPI General Date/Time Provider Initiated Documentation: 10/11/23 10:02 . HPI Narrative: 68-year-old male presents with right lateral facial swelling starting on of this week. Has been growing gradually worse throughout the week. States perhaps it is exacerbated with food consumption. History of similar symptoms in the past. Pain is exacerbated with swallowing has mild globus sensation per patient. But able to tolerate p.o. Denies any fever or chills. Denies any purulent drainage or malodorous taste in his mouth. Denies any history of diabetes or dental pain. Smokes tobacco, drinks alcohol daily per patient. Denies any chest pain or shortness of breath. Related Data Home Medications Medication Instructions Recorded Confirmed ibuprofen 200 mg tablet 400 mg PO .BID PRN 08/19/13 10/11/23 sildenafil 50 mg tablet (Viagra) 50 mg PO DAILY PRN 10/28/22 10/11/23 dicloxacillin 500 mg capsule 500 mg PO QID 7 days #28 caps 10/11/23 Previous Rx's Medication Instructions Recorded dicloxacillin 500 mg capsule 500 mg PO QID 7 days #28 caps 10/11/23 Allergies Allergy/AdvReac Type Severity Reaction Status Date / Time No Known Allergies Allergy Unverified 10/11/23 10:01 General Stated Complaint: FacialProb SABRINA: 3 Exam Narrative Exam Narrative: Alert and oriented gentleman, no acute distress, visual swelling and tenderness to the parotid gland, no evidence of stone or purulent drainage intraorally to parotid duct, maintaining secretions, uvula midline, no submandibular lymphadenopathy. Nontoxic in appearance, no stridor, lungs clear to auscultation bilaterally, cardiac rate rhythm regular Course Vital Signs Vital signs: Vital Signs Temperature 36.7 C 10/11/23 09:54 Pulse 63 10/11/23 09:54 Respiratory Rate 12 10/11/23 09:54 Blood Pressure 166/103 H 10/11/23 09:54 Pulse Oximetry 98 10/11/23 09:54 Temperature 36.7 C 10/11/23 12:35 Temperature Source Temporal Artery Scan 10/11/23 09:54 Pulse 65 10/11/23 12:35 Respiratory Rate 14 10/11/23 12:35 Respiratory Effort Normal, Non-Labored 10/11/23 09:59 Blood Pressure 154/88 H 10/11/23 12:35 Blood Pressure Position Sitting 10/11/23 09:54 Pulse Oximetry 98 10/11/23 12:35 Oxygen Delivery Method Room Air 10/11/23 09:54 Oxygen Flow Rate 0 10/11/23 09:54 Pain Level 2 10/11/23 12:35 Lab/Test Results Lab/Test Results: Laboratory Tests Range/Units 10/11/23 10:25 WBC (4.4-10.8) 10^3/uL 8.95 RBC (4.36-5.78) 10^6/uL 5.18 Hgb (13.5-17.5) g/dL 16.4 Hct (40.0-50.0) % 48.1 MCV (80-95) fL 93 MCH (27.0-33.0) pg 31.7 MCHC (32.0-36.0) % 34.1 RDW (11.8-14.1) % 13.1 Plt Count (130-400) 10^3/uL 329 MPV (8.0-11.0) fL 9.6 Immature Gran % % 0.3 Neutrophils % % 59.4 Lymphocytes % % 28.4 Monocytes % % 7.3 Eosinophils % % 3.6 Basophils % % 1.0 Nucleated RBC % (0.0-0.3) % 0.0 Absolute Neutrophils (1.2-6.7) 10^3/uL 5.32 Absolute Lymphocytes (1.2-3.4) 10^3/uL 2.54 Absolute Monocytes (0.1-0.8) 10^3/uL 0.65 Absolute Eosinophils (0.0-0.7) 10^3/uL 0.32 Absolute Basophils (0.0-0.2) 10^3/uL 0.09 Sodium (136-145) mmol/L 140 Potassium (3.5-5.1) mmol/L 4.2 Chloride (98-107) mmol/L 101 Carbon Dioxide (21.0-32.0) mmol/L 29.0 Anion Gap (3-11) mmol/L 10.0 BUN (7-18) mg/dL 15 Creatinine (0.70-1.30) mg/dL 1.0 Est GFR (CKD-EPI 2020) (mL/min/1.73m2) 82.49 Glucose (74-106) mg/dL 114 H Calcium (8.5-10.1) mg/dL 9.1 Medical Decision Making 68-year-old gentleman presenting with right lateral facial swelling. CT shows evidence of parotid gland inflammation with possible stone in his duct per radiology interpretation my review. Patient will be started on dicloxacillin for worsening pain since in the absence of obvious purulent drainage. CBC and CMP within normal limits. Patient remains nontoxic in appearance, encouraged to use sialagogues and warm compresses and return should he have new or worsening complaints. Quality:SDOH Health Related Social Needs: No Data to Display PFSH All Active Problems (Updated 10/11/23 @ 12:21 by MELISSA Starkey) Calculus of parotid gland (Acute) Acute parotitis (Acute) Tobacco use (Acute) Erectile dysfunction (Acute) Hyperlipidemia (Acute) Chest pain (Acute) Social History Smoking/Tobacco Use Status: Current every day Tobacco Type: cigarettes Smoking risk assessment performed?: Yes Alcohol Intake: current Alcohol Intake frequency: a few times a week Alcohol type: wine Drug use: Never Substance use type: does not use Housing: house Do you feel safe at home: Yes Do you feel safe in your relationship?: Yes PAWSS Have you Been Recently Intoxicated or Drunk Within the Last 30 days?: No Have you Ever Experienced Previous Episodes of Alcohol Withdrawal?: No Have you ever Experienced Withdrawal Seizures?: No Have you ever Experienced Delirium Tremens(DT)s?: No Have you ever undergone Alcohol Rehabilitation Treatment (i.e, inpt ot outpatient treatment programs)?: No Have you ever Experienced Blackouts?: No Have you ever Combined Alcohol with other Downers within the last 90 days?: No Have you ever Combined Alcohol with any other Substance of Abuse during the last 90 days?: No Positive Blood Alcohol level on Presentation? [PCS.BAL]: No Evidence of Increased Autonomic Activity (i.e. HR>120, tremor, sweating, agitation, nausea)?: No Result: 0
== END 2023-10-11 12:39 | disposition home or self-care (01) ==
PROVIDERS: Emergency Provider Physician Assistant; PCP Nurse Practitioner Family
DX: K11.20 Sialoadenitis, unspecified (principal); F17.210 Nicotine dependence, cigarettes, uncomplicated
CPT/HCPCS: 70491; 80048; 85025; J3490

== ENCOUNTER 2024-01-29 11:49 | Outpatient (REF) | payer MEDICARE, SELFPAY ==
--- OUTSIDE RECORDS SUMMARY | 2024-01-29 11:51 | XMS_ITS | Referral Summary ---
Author Organization [facility] Address [address] [place] [address] Care Team Providers Care Warehouse Team Leader Name Role Phone Unknown, Provider Primary Care Provider [phone] Social History Tobacco Use Types Packs/Day Years Used Date Smoking Tobacco: Never Assessed Sex and Gender Information Value Date Recorded Sex Assigned at Not on file Gender Identity Not on file Sexual Orientation Not on file Plan of Treatment Not on file Care Teams Warehouse Team Leader Relationship Specialty Start Date End Date Unknown, Provider, PCP - General 10/09/15
--- OUTSIDE RECORDS SUMMARY | 2024-01-29 11:51 | XMS_ITS | Encounter Summary ---
Author Organization [facility] Address [address] [place] [id number] Care Team Providers Care Ssis Etl Developer Name Role Phone Unknown, Provider Primary Care Provider [phone] Encounter Details Date Type Department Care Team (Latest Contact Info) Description 10/18/2015 8:14 EDT - 10/18/2015 23:59 EDT Hospital Encounter [facility] [address] [place] [address] Unknown, Provider, Discharge Disposition: Home or Self Care Social History Tobacco Use Types Packs/Day Years Used Date Smoking Tobacco: Never Assessed Sex and Gender Information Value Date Recorded Sex Assigned at Not on file Gender Identity Not on file Sexual Orientation Not on file documented as of this encounter Discharge Disposition Disposition Code Departure Means Destination Home or Self Longterm documented in this encounter Plan of Treatment Not on file documented as of this encounter Visit Diagnoses Not on filedocumented in this encounter Care Teams Ssis Etl Developer Relationship Specialty Start Date End Date Unknown, Provider, PCP - General 10/09/15 documented as of this encounter
--- OUTSIDE RECORDS SUMMARY | 2024-01-29 11:51 | XMS_ITS | Clinical Summary ---
Author Organization [facility] Address [address] [place] [address] Care Team Providers Care Blender Name Role Phone Unknown, Provider Primary Care Provider [phone] Social History Tobacco Use Types Packs/Day Years Used Date Smoking Tobacco: Never Assessed Sex and Gender Information Value Date Recorded Sex Assigned at Not on file Gender Identity Not on file Sexual Orientation Not on file Plan of Treatment Health Maintenance Due Date Last Done Comments Hepatitis C Screen 1956 RSV Immunization ( o r 60+ Years) (1 - 1-dose 60+ series) 2016 Fall Risk Screening 2021 COVID-19 Vaccine (2022- season) 2023 Care Teams Blender Relationship Specialty Start Date End Date Unknown, Provider, PCP - General 10/09/15
--- OUTSIDE RECORDS SUMMARY | 2024-01-29 11:51 | XMS_ITS | Clinical Summary ---
Author Organization [facility] [place] [address] Care Team Providers Care Gelatin Dynamite Packing Operator Name Role Phone Dequan Jain MD Primary Care Provider [phone] Social History Tobacco Use Types Packs/Day Years Used Date Smoking Tobacco: Never Assessed Sex and Gender Information Value Date Recorded Sex Assigned at Not on file Gender Identity Not on file Sexual Orientation Not on file Plan of Treatment Health Maintenance Due Date Last Done Comments CT Colonography 1956 Colonoscopy 1956 Colorectal Cancer Screening 1956 FIT DNA 1956 FIT 1956 Sigmoidoscopy (10 year) with FIT yearly 1956 Sigmoidoscopy 1956 Hepatitis C Screening 1974 Lipid Screening 1974 Tetanus/Diphtheria/Pertussis Vaccines (1 - Tdap) 06/28 Zoster vaccine (1 of 2) 2006 Advance Directive 2011 Pneumoccocal Vaccine: 65+ (1 of 1 - PCV) 2021 Covid-19 Vaccine (1 - 2022- season) 2024 Influenza (Flu) vaccine (1 o f 1 - Influenza standard series) 01/03/2024 Care Teams Gelatin Dynamite Packing Operator Relationship Specialty Start Date End Date Dequan Jain MD [address] [place] [address] PCP - General 12/06/14
--- OUTSIDE RECORDS SUMMARY | 2024-01-29 11:51 | XMS_ITS | Encounter Summary ---
Author Organization [facility] Address [address] [place] [address] Care Team Providers Care Skid Worker Name Role Phone Unknown, Provider Primary Care Provider [phone] Encounter Details Date Type Department Care Team (Late st Contact Info) Description 01/24/2023 Lab Requisition [facility] Pathology & Laboratory Medicine - [facility] [address] [place] [address] Outr Resulting Lab, Provider Social History Tobacco Use Types Packs/Day Years Used Date Smoking Tobacco: Never Assessed Sex and Gender Information Value Date Recorded Sex Assigned at Not on file Gender Identity Not on file Sexual Orientation Not on file documented as of this encounter Plan of Treatment Not on file documented as of this encounter Procedures Procedure Name Priority Date/Time Associated Diagnosis Comments PSA TOTAL, DIAGNOSTIC Routine 01/23/2023 12:45 EDT documented in this encounter Results * PSA TOTAL, DIAGNOSTIC (01/23/2023 12:45 EDT) PSA 0.8 <=4.5 ng/mL 01/26/2023 9:[address] [facility] Blood VENOUS BLOOD / Unknown 01/23/2023 12:45 EDT 01/24/2023 21:34 EDT Narrative [facility] - 01/26/2023 9:08 EDT NOTE: Serum PSA concentration should not be interpreted as absolute evidence for the presence or absence of malignant disease. Assayed on Siemens ADVIA Centaur XPT using chemiluminescent technology.??Values obtained by using different assay methods cannot be used interchangeably. Provider Outr Resulting Lab CHEMISTRY & BLOOD GAS ORDERABLES [facility] [address] [place] [address] documented in this encounter Visit Diagnoses Not on filedocumented in this encounter Care Teams Skid Worker Relationship Specialty Start Date End Date Unknown, Provider, PCP - General 10/09/15 documented as of this encounter
--- OUTSIDE RECORDS SUMMARY | 2024-01-29 11:51 | XMS_ITS | Encounter Summary ---
Author Organization [facility] Address [address] [place] [address] Care Team Providers Care Pyrotechnic Assembler Name Role Phone Unknown, Provider Primary Care Provider [phone] Encounter Details Date Type Department Care Team (Late st Contact Info) Description 05/21/2009 Historical Results Only [facility] - Main [address] [id number] Shaun Russo MD Social History Tobacco Use Types Packs/Day Years Used Date Smoking Tobacco: Never Assessed Sex and Gender Information Value Date Recorded Sex Assigned at Not on file Gender Identity Not on file Sexual Orientation Not on file documented as of this encounter Plan of Treatment Not on file documented as of this encounter Procedures Procedure Name Priority Date/Time Associated Diagnosis Comments SURGICAL PATHOLOGY Routine 05/21/2009 documented in this encounter Results * SURGICAL PATHOLOGY (05/21/2009) 05/21/2009 05/21/2009 14: 46 EST Narrative [facility] - 05/22/2009 10:23 EST ----- ------- Name: JUDY GONSALEZ ?: [birth year] ?Age/Sex: 63/M ?Unit#: [id number] ? Loc: END ? Status: REG CLI ?? Reg Date: 05/21/09 ? Pt.Phone Number: ? ----- ------- Specimen: [id number] ?STATUS: SOUT ?Spec Date:05/21/09 ? Physician Copies: ?Shaun Russo MD ?? Tissues: A ?? Gastrointestinal Tract (SIGMOID COLON) ? Roland Pena V CPT: 80617 ?? Units: ??1 ?FINAL DIAGNOSIS ? Sigmoid colon, polyp, biopsy; ? - Tubular adenoma. ? GROSS DESCRIPTION ? Received in Bouin's and labeled sigmoid colon polyp is a mucosal tissue ? fragment 0.1 cm in greatest dimensions, e.s. ??BT ?? PREOP DX/CLINICAL HISTORY ?History of polyps, and family history of colon cancer Signed ____(signature on file)____ Mik Kitchen M.D. 05/22/09 ?? By the signature above, the attending physician certifies that he/she has personally conducted a gross and/or microscopic examination of the described specimens and rendered or confirmed the above diagnosis. Test Performed by [facility], [address] [address] Varnish Inspector: Gracie Alberto MD PHD ----- ------- Shaun Russo MD PATHOLOGY ORDERABLES Performing Organization Address City/State/[facility] Co de Phone Number [facility] documented in this encounter Visit Diagnoses Not on filedocumented in this encounter Care Teams Pyrotechnic Assembler Relationship Specialty Start Date End Date Unknown, Provider, PCP - General 10/09/15 documented as of this encounter
--- OUTSIDE RECORDS SUMMARY | 2024-01-29 11:51 | XMS_ITS | Encounter Summary ---
Author Organization [facility] Address [address] [place] [address] Care Team Providers Care Dowel Sticker Operator Name Role Phone Unknown, Provider Primary Care Provider [phone] Encounter Details Date Type Department Care Team (Late st Contact Info) Description 10/22/2020 Results Only [facility] - [facility] - Main [address] [place], [place] [id number] Gilbert Conley MD [address] [place] [address] [address] [place] [address] Social History Tobacco Use Types Packs/Day Years Used Date Smoking Tobacco: Never Assessed Sex and Gender Information Value Date Recorded Sex Assigned at Not on file Gender Identity Not on file Sexual Orientation Not on file documented as of this encounter Plan of Treatment Not on file documented as of this encounter Procedures Procedure Name Priority Date/Time Associated Diagnosis Comments SURGICAL PATHOLOGY Routine 10/22/2020 documented in this encounter Results * SURGICAL PATHOLOGY (10/22/2020) 10/22/2020 10/22/2020 12: 55 EDT Narrative [facility] - 10/23/2020 12:30 EDT ----- ------- Name: JUDY GONSALEZ ?: [birth year] ?Age/Sex: 65/M ?Unit#: [id number] ? Loc: END ? Status: DEP CLI ?? Reg Date: 10/22/20 ? Pt.Phone Number: ? ----- ------- Specimen: [id number] ? STATUS: SOUT ?Spec Date:10/22/20 ? Physician Copies: ?Gilbert Conley, Tissues: A ?? Endoscopy specimen (DISTAL SIGMOID) ? B ?? Endoscopy specimen (RECTUM) ? CPT: 64297 ?? Units: ??2 ?FINAL DIAGNOSIS ? A. ??SIGMOID COLON, DISTAL, POLYP, BIOPSY; ? - Hyperplastic polyp. ? B. ??RECTUM, POLYPS X 2, BIOPSIES; ? - Hyperplastic polyps x 2. ? GROSS DESCRIPTION ? A. ??Specimen is received in formalin labeled Judy Gonsalez and distal ? sigmoid polyp is a mucosal fragment that measures 0.1 x 0.3 x 0.3 cm. es 1 ? B. ??Specimen is received in formalin labeled Judy Gonsalez and rectal polyps ? x 2 are two mucosal fragments that measure 0.2 x 0.2 x 0.3 cm and 0.1 x 0.2 x ? 0.4 cm. es 1 KT ?? PREOP DX/CLINICAL HISTORY ?FAMILY HX COLON CA Signed ____(signature on file)____ Taye Meraz 10/23/20 ? By the signature above, the attending physician certifies that he/she has personally conducted a gross and/or microscopic examination of the described specimens and rendered or confirmed the above diagnosis. Test Performed by [facility], [address] [place] [address] Stripper Color: Gracie Alberto MD PHD ----- ------- Gilbert Conley MD PATHOLOGY ORDERABLES [facility] [address] [place] [address] documented in this encounter Visit Diagnoses Not on filedocumented in this encounter Care Teams Dowel Sticker Operator Relationship Specialty Start Date End Date Unknown, Provider, PCP - General 10/09/15 documented as of this encounter
--- OUTSIDE RECORDS SUMMARY | 2024-01-29 11:51 | XMS_ITS | Encounter Summary ---
Author Organization [facility] Address [address] [place] [address] Care Team Providers Care Steel Wool Machine Operator Name Role Phone Dequan Lee MD Primary Care Provider [phone] Reason for Visit * Reason Comments Chest Pain Encounter Details Date Type Department Care Team (Late st Contact Info) Description 12/11/2014 11:00 AM EDT Procedure visit [facility] [address] [place] [id number] John De Jesus Jr., MD [address] [facility] [address] [place], [place] [id number] Non-cardiac chest pain Social History Tobacco Use Types Packs/Day Years Used Date Smoking Tobacco: Never Assessed Sex and Gender Information Value Date Recorded Sex Assigned at Not on file Gender Identity Not on file Sexual Orientation Not on file documented as of this encounter Progress Notes * John De Jesus Jr., MD - 12/11/2014 12:04 PM EDT ETT negative documented in this encounter Plan of Treatment Not on file documented as of this encounter Procedures Procedure Name Priority Date/Time Associated Diagnosis Comments STRESS TEST, EXERCISE (TREADMILL) Routine 12/11/2014 documented in this encounter Results * Stress Test, Exercise (Treadmill) (12/11/2014) Anatomical Region Laterality Modality Other Narrative 12/11/2014 Exercise Stress Test- Final Report ?? Srinivas Gonsalez : 1955 [facility], [address] [facility] [address] Primary Physician: ??DEQUAN LEE MD (General) Indication: chest pain Date: 12/11/2014 Summary: Max Exercise: ??7:30, 1:30 ??Stage III ??Chaka ?? 10 ?? METS Max HR: ? 138= 85 % PMR(136) Max BP: ??206/[address] change: ??none Reason for Termination: dyspnea, no chest pain Impression: good exercise tolerance, no ischemia, low probability of obstructive coronary artery disease Details: Medication: no cardiac Risk Factors: ?? Family History, Smoking Resting EKG: SB 49, normal ?Resting BP: 123/87 Exercise per Chaka protocol Arrhythmias: none Recovery: ??BP ?? -> ?? 144/71 ?HR ?? -> 65 Arrhythmias: none Electronically signed: John De Jesus Jr, MD [facility] Historical Provider CARDIAC SERVICES ORDERABLES documented in this encounter Visit Diagnoses Diagnosis Non-cardiac chest pain Other chest pain documented in this encounter Care Teams Steel Wool Machine Operator Relationship Specialty Start Date End Date Dequan Lee MD [address] [place] [address] PCP - General 12/06/14 documented as of this encounter
--- OUTSIDE RECORDS SUMMARY | 2024-01-29 11:51 | XMS_ITS | Encounter Summary ---
Author Organization [facility] Address [address] [place] [address] Care Team Providers Care Assisted Living Housekeeper Name Role Phone Unknown, Provider Primary Care Provider [phone] Encounter Details Date Type Department Care Team (Late st Contact Info) Description 01/29/2022 Lab Requisition [facility] Pathology & Laboratory Medicine - [facility] [address] [place] [address] Outr Resulting Lab, Provider Social History Tobacco [...] Procedure Name Priority Date/Time Associated Diagnosis Comments LYME AB Routine 01/29/2022 9:10 EDT PSA TOTAL, DIAGNOSTIC Routine 01/29/2022 9:10 EDT documented in this encounter Results * PSA TOTAL, DIAGNOSTIC (01/29/2022 9:10 EDT) PSA 0.8 <=4.5 ng/mL 01/29/2022 23:15 EDT [facility] Blood VENOUS BLOOD / Unknown 01/29/2022 9:10 EDT 01/29/2022 21:17 EDT Narrative [facility] - 01/29/2022 23:15 EDT NOTE: Serum PSA concentration should not be interpreted as absolute evidence for the presence or absence of malignant disease. Assayed on Siemens ADVIA ViXS Systemsaur XPT using chemiluminescent technology.??Values obtained by using different assay methods cannot be used interchangeably. Provider Outr Resulting Lab CHEMISTRY & BLOOD GAS ORDERABLES Performing Organization Address City/[facility] Co de Phone Number [facility] [address] [place] [address] * LYME AB (01/29/2022 9:10 EDT) Lyme Ab Negative Negative 01/30/2022 8:55 EDT [facility] Blood VENOUS BLOOD / Unknown 01/29/2022 9:10 EDT 01/29/2022 21:17 EDT Provider Outr Resulting Lab IMMUNOLOGY A ND SEROLOGY ORDERABLES Performing Organization Address [facility] de Phone Number [facility] [address] [place] [address] documented in this encounter Visit Diagnoses Not on filedocumented in this encounter Care Teams Assisted Living Housekeeper Relationship Specialty Start Date End Date Unknown, Provider, PCP - General 10/09/15 documented as of this encounter
--- OUTSIDE RECORDS SUMMARY | 2024-01-29 11:51 | XMS_ITS | Encounter Summary ---
Author Organization [facility] Address [address] [place] [address] Care Team Providers Care Alternative Energy Technician Name Role Phone Unknown, Provider Primary Care Provider [phone] Encounter Details Date Type Department Care Team (Late st Contact Info) Description 10/18/2015 Historical Results Only [facility] - Main [address] [phone] Shaun Russo MD Social History Tobacco Use [...] Date/Time Associated Diagnosis Comments SURGICAL PATHOLOGY Routine 10/18/2015 12 :42 EDT documented in this encounter Results * SURGICAL PATHOLOGY (10/18/2015 12:42 EDT) 10/18/2015 12:4 2 EDT 10/18/2015 12:42 EDT Narrative [facility] - 10/19/2015 13:24 EDT ----- ------- Name: SUNSHINEJUDY ?: [birth year] ?Age/Sex: 63/M ?Unit#: [id number] ? Loc: END ? Status: DEP CLI ?? Reg Date: 10/18/15 ? Pt.Phone Number: ? ----- ------- Specimen: [id number] ? STATUS: SOUT ?Spec Date:10/18/15 ? Physician Copies: ?Shaun Russo MD ?? Tissues: A ?? Endoscopy specimen (HEPATIC FLEXURE) ? Roland Pena V ? B ?? Endoscopy specimen (SIGMOID) ? CPT: 72147 ?? Units: ??2 ?FINAL DIAGNOSIS ? A. COLON, HEPATIC FLEXURE, POLYP, BIOPSY; ? - Tubular adenoma. ? - Additional colonic tissue with no polyp identified. ? B. COLON, SIGMOID, POLYP, BIOPSY; ? - Tubular adenoma. ? GROSS DESCRIPTION ? A. ??Received in formalin labeled with the patient's name and Polyps x 2 cold ? snare hepatic flexure are two mucosal tissue fragments measuring 0.3 and 1.8 ? cm. ??es 1 ? B. ??Received in formalin labeled with the patient's name and Polyp cold snare ? sigmoid is a single mucosal tissue fragment measuring 0.5 ??cm. es 1 ??NM ?MICROSCOPIC DESCRIPTION ?? PREOP DX/CLINICAL HISTORY ?HISTORY POLYPS Signed ____(signature on file)____ Razia Bonilla M.D. 10/19/15 ?? By the signature above, the attending physician certifies that he/she has personally conducted a gross and/or microscopic examination of the described specimens and rendered or confirmed the above diagnosis. Test Performed by [facility], [address] [place] [address] School Patrol: Gracie Ablerto MD PHD ----- ------- Shaun Russo MD PATHOLOGY ORDERABLES Performing Organization Address [facility]/State/[facility] Co de Phone Number [facility] documented in this encounter Visit Diagnoses Not on filedocumented in this encounter Care Teams Alternative Energy Technician Relationship Specialty Start Date End Date Unknown, Provider, PCP - General 10/09/15 documented as of this encounter
[2024-01-29 15:02] LABS: HGB 16.1 g/dL (13.5-17.5); MCH 31.7 pg (27.0-33.0); MCHC 33.5 % (32.0-36.0); MCV 95 fL (80-95); MPV 10.1 fL (8.0-11.0); Platelet Count 327 10^3/uL (130-400); RBC 5.08 10^6/uL (4.36-5.78); RDW-SD 45.7 fL; WBC 8.07 10^3/uL (4.4-10.8)
[2024-01-29 15:58] LABS: ALT 23 U/L (16-63); AST 24 U/L (15-37); Albumin 4.2 g/dL (3.4-5.0); Alkaline Phosphatase 78 U/L (46-116); Anion Gap 7.6 mmol/L (3-11); BUN 15 mg/dL (7-18); Bilirubin, Total 0.67 mg/dL (0.2-1.0); CO2 27.4 mmol/L (21.0-32.0); CREATININE 1.1 mg/dL (0.70-1.30); Calcium 9.6 mg/dL (8.5-10.1); Calculated LDL 183 mg/dL (<100); Chloride 104 mmol/L (98-107); Cholesterol 283 mg/dL (<200); Estimated GFR 73.58 (mL/min/1.73m2); Glucose 104 mg/dL (74-106); HDL Cholesterol 80 mg/dL (40-60); Potassium 4.4 mmol/L (3.5-5.1); Sodium 139 mmol/L (136-145); Total Protein 7.6 g/dL (6.4-8.2); Triglyceride 104 mg/dL (<150)
== END 2024-01-29 11:50 | disposition home or self-care (01) ==
LOC: NCHCN 11:49
PROVIDERS: PCP Nurse Practitioner Family; Visit Provider Nurse Practitioner Family
DX: Z00.00 Encounter for general adult medical examination without abnormal findings (principal)
CPT/HCPCS: 80053; 80061; 85027

== ENCOUNTER 2025-01-24 17:38 | Outpatient (REF) | payer MEDICARE, SELFPAY ==
[2025-01-24 21:13] LABS: Abs Immature Grans 0.02 10^3/uL (0.0-0.06); HCT 43.6 % (40.0-50.0); HGB 15.1 g/dL (13.5-17.5); Immature Grans % 0.2 %; MCH 31.5 pg (27.0-33.0); MCHC 34.6 % (32.0-36.0); MCV 91 fL (80-95); MPV 10.5 fL (8.0-11.0); Platelet Count 324 10^3/uL (130-400); RBC 4.80 10^6/uL (4.36-5.78); RDW 12.7 % (11.8-14.1); RDW-SD 42.7 fL; WBC 9.32 10^3/uL (4.4-10.8)
== END 2025-01-24 17:39 | disposition home or self-care (01) ==
LOC: LBN 17:38
PROVIDERS: PCP Nurse Practitioner Family; Visit Provider Nurse Practitioner Family
DX: R68.84 Jaw pain (principal)
CPT/HCPCS: 80053; 85025

== ENCOUNTER 2025-01-25 15:33 | Outpatient (CLI) | payer MEDICARE, SELFPAY ==
--- NOTE | 2025-01-25 | DI.CT_ITS ---
Exam(s) CT NECK WO EXAM: CT NECK WO CLINICAL HISTORY: R68.84 Jaw pain, Eval R salivary glands. TECHNIQUE: Imaging Protocol: Axial computed tomography images with coronal and sagittal reformatted images were created and reviewed. CONTRAST MATERIAL: No intravenous contrast was administered. COMPARISON: CT CT NECK W from 10/11/2023 FINDINGS: Lack of IV contrast does limit the examination. There is artifact from the patient's dental work. Visualized intracranial structures: Within normal limits. Orbits and orbital soft tissues: Within normal limits. Visualized paranasal sinuses: There are mucous retention cysts in the right maxillary sinus. The remaining visualized paranasal sinuses and mastoid air cells are clear. Pharynx: Within normal limits. Larynx: Within normal limits. Retropharyngeal space: Within normal limits. Parotids/submandibular: There are few calcifications seen within the right parotid gland. No parotid mass is seen on this noncontrast examination. The left parotid gland and submandibular glands are unremarkable. Thyroid gland: Within normal limits. Lymphadenopathy: There is scattered lymph nodes seen along the level one to level three all measuring less than 8 mm in short axis diameter which are physiologic in nature. Trachea: Within normal limits. Lung apices: There is mild apical scarring, right greater than left. Bones: Within normal limits for the patient's age. Carotids/Jugular: Within normal limits. Soft tissues: Within normal limits. IMPRESSION: 1. Right parotid calcifications without mass. This is nonspecific. These may represent sialolithiasis (most common), vascular changes and autoimmune disease such as Sjogren's. 2. No evidence of cervical adenopathy. RADIATION DOSE DELIVERED: 402.81mGy.cm Total DLP 402.81mGy.cm Total DLP DATA REPOSITORY: All CT scans at this facility are submitted to the National Radiology Data Registry (NRDR) Dose Index Registry (DIR) with the [employer] (A[employer]). RADIATION OPTIMIZATION: All CT scans at this facility use at least one of these dose optimization techniques: automated exposure control; mA and/or kV adjustment per patient size (includes targeted exams where dose is matched to clinical indication); or iterative reconstruction.
== END 2025-01-25 15:53 ==
LOC: DI 15:33
PROVIDERS: PCP Nurse Practitioner Family; Visit Provider Nurse Practitioner Family
DX: R68.84 Jaw pain (principal); R93.0 Abnormal findings on diagnostic imaging of skull and head, not elsewhere classified
CPT/HCPCS: 70490

== ENCOUNTER 2025-01-31 17:38 | Outpatient (REF) | payer MEDICARE, SELFPAY ==
[2025-01-31 22:06] LABS: ALT 29 U/L (16-63); AST 24 U/L (15-37); Albumin 4.3 g/dL (3.4-5.0); Alkaline Phosphatase 69 U/L (46-116); Anion Gap 11.0 mmol/L (3-11); BUN 17 mg/dL (7-18); Bilirubin, Total 0.5 mg/dL (0.2-1.0); CO2 27.0 mmol/L (21.0-32.0); Calcium 9.3 mg/dL (8.5-10.1); Chloride 104 mmol/L (98-107); Cholesterol 277 mg/dL (<200); Estimated GFR 73.12 (mL/min/1.73m2); Glucose 94 mg/dL (74-106); Potassium 4.1 mmol/L (3.5-5.1); Sodium 142 mmol/L (136-145); Total Protein 7.5 g/dL (6.4-8.2); Triglyceride 180 mg/dL (<150)
[2025-02-01 04:56] LABS: Calculated LDL 183 mg/dL (<100); HDL Cholesterol 58 mg/dL (>or=40)
[2025-02-01 18:34] LABS: PSA, Screening 0.8 ng/mL (<=4.5)
== END 2025-01-31 17:39 | disposition home or self-care (01) ==
LOC: NCHCN 17:38
PROVIDERS: PCP Nurse Practitioner Family; Visit Provider Nurse Practitioner Family
DX: E78.5 Hyperlipidemia, unspecified (principal); Z00.00 Encounter for general adult medical examination without abnormal findings; Z12.5 Encounter for screening for malignant neoplasm of prostate
CPT/HCPCS: 80053; 80061; 84153